=== PATIENT | female | born 1980 | race Caucasian/White ===

== ENCOUNTER 2016-12-25 04:09 | Inpatient (IN) | payer OTHER ==
[~2016-12-25] VITALS: Ht 160 cm; Wt 108.4 kg
[~2016-12-25 04:09] MED LIST: 0.9% SODIUM CHLORIDE 10 ML VIAL IVP ONE; EPHEDrine SULFATE 50 MG/ML VIAL IM ONE; LIDOCAINE HCL/PF 2% 5 ML VIAL IM ONE; OXYTOCIN 10 UNITS/ML VIAL IM ONE; PHENYLEPHRINE HCL 10 MG/ML VIAL IVP ONE
[2016-12-25] MEDS ORDERED: RINGERS SOLUTION,LACTATED 1,000 ML IV ONE (04:14)
[2016-12-25] MEDS ORDERED: CITRIC ACID/SODIUM CITRATE 30 ML SOLUTION UDCUP PO ONE (04:15)
[2016-12-25] MEDS ORDERED: METOCLOPRAMIDE HCL 5 MG/ML 2 ML VIAL IVP ONE (04:15)
[2016-12-25] MEDS ORDERED: PREN1TAB80 PO (04:25)
[2016-12-25 04:56] VITALS: BP 141/81
[2016-12-25 04:56] LABS: BASOPHILS % (AUTO) 0.3 % (0.0-2.0); EOSINOPHILS % (AUTO) 0.4 % (1.0-6.0); HEMATOCRIT 35.5 % (36-46); HEMOGLOBIN 11.9 g/dL (12.0-16.0); LYMPHOCYTES # (AUTO) 1.3 K/uL (1.0-4.8); MEAN CORPUSCULAR HEMOGLOBIN 28.2 pg (26.0-34.0); MEAN CORPUSCULAR HGB CONC 33.7 G/dL (31.0-37.0); MEAN CORPUSCULAR VOLUME 84 fL (80-100); MONOCYTES # (AUTO) 0.9 K/uL (0.1-1.0); MONOCYTES % (AUTO) 12.6 % (2.0-9.0); NEUTROPHILS # (AUTO) 4.7 K/uL (1.8-7.7); NEUTROPHILS % (AUTO) 67.7 % (40.0-70.0); RED BLOOD CELL COUNT(AUTO) 4.24 MIL/uL (4.00-5.20); RED CELL DISTRIBUTION WIDTH 15.5 % (11.5-14.5)
[2016-12-25] MEDS ORDERED: FentaNYL CITRATE-PF 100 MCG/2 ML VIAL ONE (07:05)
[2016-12-25] MEDS ORDERED: MORPHINE SULFATE/PF 1 MG/ML 10 ML AMP ONE (07:05)
[2016-12-25] MEDS ORDERED: CeFAZolin 2 GM/DEXTROSE 50 ML IV ONE (07:05)
[2016-12-25] MEDS ORDERED: DEXAMETHASONE SOD PHOS 4 MG/ML VIAL IVP PRN (08:30)
[2016-12-25] MEDS ORDERED: MEPERIDINE-PF 25 MG/ML SYRINGE IVP PRN (08:30)
[2016-12-25] MEDS ORDERED: NALBUPHINE HCL 10 MG/ML VIAL IVP PRN (08:30)
[2016-12-25] MEDS ORDERED: PROMETHAZINE HCL 12.5 MG in SODIUM CHLORIDE 0.9% 50 ML IV PRN (08:30)
[2016-12-25] MEDS ORDERED: ONDANSETRON HCL 4 MG/2 ML VIAL IVP PRN ×2 (08:30→09:15)
[2016-12-25] MEDS ORDERED: DiphenhydrAMINE HCL 50 MG/ML VIAL IVP PRN ×2 (08:30→09:15)
[2016-12-25] MEDS ORDERED: ACETAMINOPHEN/CODEINE 300-30 MG TABLET PO PRN (09:00)
[2016-12-25] MEDS ORDERED: LANOLIN 7 GM OINTMENT TP PRN (09:00)
[2016-12-25] MEDS ORDERED: FentaNYL CITRATE-PF 100 MCG/2 ML VIAL IVP PRN ×3 (09:15)
[2016-12-25] MEDS ORDERED: NALOXONE HCL 0.4 MG/ML VIAL IVP PRN (09:15)
[2016-12-25] MEDS ORDERED: KETOROLAC TROMETHAMINE 30 MG/ML VIAL IVP ONE (10:00)
[2016-12-25] MEDS ORDERED: KETOROLAC TROMETHAMINE 30 MG/ML VIAL ONE (10:13)
[2016-12-25] MEDS ORDERED: DEXTROSE 5%-0.45% SODIUM CHL 1,000 ML IV ONE (10:14)
[2016-12-25] MEDS: DEXTROSE 5%-0.45% SODIUM CHL 1,000 ML IV SCH ×4 (10:27→22:58)
[2016-12-25] MEDS: NALBUPHINE HCL 10 MG/ML VIAL IVP SCH ×3 (12:19→23:59)
[2016-12-25] MEDS: KETOROLAC TROMETHAMINE 30 MG/ML VIAL IVP SCH ×2 (16:32→22:04)
[2016-12-25] MEDS: MAGNESIUM HYDROXIDE SUSPENSION 30 ML UDCUP PO SCH (22:02)
[2016-12-26] MEDS: IBUPROFEN 800 MG TABLET PO SCH ×4 (04:02→21:15)
[2016-12-26] MEDS: NALBUPHINE HCL 10 MG/ML VIAL IVP SCH (05:29)
[2016-12-26] MEDS: ACETAMINOPHEN/CODEINE 300-30 MG TABLET PO PRN ×4 (09:54→22:44)
[2016-12-26] MEDS: MAGNESIUM HYDROXIDE SUSPENSION 30 ML UDCUP PO SCH ×2 (09:54→21:15)
[2016-12-27] MEDS: IBUPROFEN 800 MG TABLET PO SCH ×4 (04:01→23:57)
[2016-12-27] MEDS: MAGNESIUM HYDROXIDE SUSPENSION 30 ML UDCUP PO SCH ×2 (07:53→21:00)
[2016-12-27] MEDS: ACETAMINOPHEN/CODEINE 300-30 MG TABLET PO PRN ×2 (07:54→14:44)
[2016-12-28] MEDS: IBUPROFEN 800 MG TABLET PO SCH (06:22)
[2016-12-28] MEDS ORDERED: ACET1TAB12 PO (10:14)
[2016-12-28] MEDS ORDERED: IBUP-2070 PO (10:15)
[2016-12-28] MEDS ORDERED: DSS100 PO (10:20)
== END 2016-12-28 11:30 | disposition home or self-care (01) | DRG 766 ==
LOC: OBSVTOIN 04:09 → 4S 04:09
PROVIDERS: ADMIT Obstetrics & Gynecology; ATTEND Obstetrics & Gynecology
PROC: 10D00Z1 Extraction of Products of Conception, Low, Open Approach (ICD-10-PCS; principal; 2016-12-25)
DX: O66.5 Attempted application of vacuum extractor and forceps (principal); O09.523 Supervision of elderly multigravida, third trimester; Z3A.39 39 weeks gestation of pregnancy; Z37.0 Single live birth
CPT/HCPCS: 86850; 86900; 86901; 87081; J0690; J1885; J2300; J2370; J2590; J2765; J3010; J3490; J7120